=== PATIENT | female | born 1935 | race Caucasian/White ===

== ENCOUNTER 2020-10-10 20:50 | Emergency (ER) | payer MEDICARE, OTHER ==
[2020-10-10 21:03] VITALS: BP 142/85
--- NOTE | 2020-10-10 21:29 | ED Physician Documentation ---
History of Present Illness - Stated complaint Stated Complaint: FANG DRAINAGE PROBLEMS - Chief complaint Chief Complaint: General - History obtained from History obtained from: Patient - History of Present Illness Timing: Today Pain level now: 0 - Additonal information Additional information: patient underwent mastectomy, right, October 05. She has a FANG drain in place at the surgical site. She presents at this time due to the FANG drain malfunctioning; specifically, the grenade rapidly fills with air each time it is squeezed. 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 Review of Systems Constitutional: reports: Reviewed and negative Skin: denies: Rash PD PAST MEDICAL HISTORY - Past Medical History Past Medical History: Yes - Past Surgical History Past Surgical History: Yes /MARINE BIOLOGIST: Mastectomy - Allergies Allergies/Adverse Reactions: Allergies Allergy/AdvReac Type Severity Reaction Status Date / Time No Known Drug Allergies Allergy Verified 10/10/20 22:17 PD ED PE NORMAL - Vitals Vital signs reviewed: Yes - General General: Alert and oriented X 3, No acute distress, Well developed/nourished - Derm Derm: Normal color, Warm and dry, No rash - Free text exam Free text exam: right chest wall: surgical site is c/d/I. FANG grenade is expanded with air (no discharge in grenade). when squeezed (valve opened, then squeezed, then valve recapped), it immediately fills with air accompanied by sound of air bubbling from inside wound. when squeezed and then tubing kinked, the grenade would not inflate, confirming grenade and tubing external to wound are intact and without leak. there is no discharge no erythema from/around tubing insertion site nor surgical incision site Results - Vitals Vitals: Oxygen O2 Source Room air PD MEDICAL DECISION MAKING - ED course Complexity details: considered differential, d/w patient, d/w loss prevention consultant (Dr. Agee (patient can be d/c provided no evidence of wound infection. has f/u appt. tomorrow with her surgeon)) Departure - Departure Disposition: Home, Self Care Clinical Impression: FANG drain, broken Condition: Good Instructions: Tube Sergo Carrillo Drainage Care Comments: Your FANG drain is malfunctioning, and the leak appears to be somewhere inside the surgical site. Your exam does not suggest an emergent problem at this time (such as infection or rapid accumulation of drainage), and thus you can follow up with your surgeon tomorrow as scheduled for further evaluation of this problem. I discussed your case with Dr. Agee (technology consultant surgeon at [facility]), and he also says no intervention is indicated at this time provided there is no evidence of infection and that you follow up with your surgeon as scheduled tomorrow. There might be some leakage around the surgical incision site overnight. Discharge Date/Time: 10/10/20 22:24
[2020-10-10] MEDS ORDERED: HYDROcod/ACETAM 5/325 MG TABLET PO STA (22:03)
== END 2020-10-10 22:24 | disposition home or self-care (01) ==
LOC: ED 20:50
DX: T85.638A Leakage of other specified internal prosthetic devices, implants and grafts, initial encounter (principal)
CPT/HCPCS: 99282; 99283; A9270